=== PATIENT | female | born 2000 | race Caucasian/White ===

== ENCOUNTER 2023-01-05 01:10 | Emergency (ER) | payer OTHER ==
[2023-01-05 01:18] VITALS: RESP 18; TEMP 98.2
[2023-01-05] MEDS ORDERED: BENZOCAINE/MENTHOL LOZENG 1 EACH LOZENGE MUCOUS MEM STA (01:22)
[2023-01-05] MEDS ORDERED: KETOROLAC 15 MG/ML 1 ML VIAL IM STA (01:22)
[2023-01-05] MEDS ORDERED: ONDANSETRON ODT 4 MG TAB PO STA (02:09)
--- NOTE | 2023-01-05 02:43 | ED ---
ENT HPI - General Chief complaint: ENT Stated complaint: throat pain Time Seen by Provider: 01/05/23 01:22 Source: patient Mode of arrival: ambulatory Limitations: no limitations - History of Present Illness Initial comments: Patient is a 23-year-old female who presents to the emergency Department for sore throat. Patient reports mild sore throat since yesterday. He denies cough besides one episode of forceful cough on the way to the hospital during which patient saw a drop of blood on his arm after. He denies chest pain and shortness of breath. Denies fever, other upper respiratory symptoms. Denies history of PE and DVT. Denies leg pain and swelling. - Related Data Previous Rx's Medication Instructions Recorded Benzocaine/Menthol Lozeng [Cepacol 1 each MUCOUS MEM Q4HR PRN #30 01/05/23 lozenge] lozenge Ibuprofen [Motrin] 600 mg PO Q8HR PRN #30 tab 01/05/23 Ondansetron Odt [Zofran Odt] 4 mg PO Q8HR PRN #10 tab 01/05/23 Allergies Allergy/AdvReac Type Severity Reaction Status Date / Time No Known Allergies Allergy Verified 01/05/23 01:18 Review of Systems ROS Statement: Those systems with pertinent positive or pertinent negative responses have been documented in the HPI. ROS Other: All systems not noted in ROS Statement are negative. Past Medical History Past Medical History: No Reported History History of Any Multi-Drug Resistant Organisms: None Reported Past Surgical History: No Surgical Hx Reported Past Psychological History: Anxiety, Depression Smoking Status: Vaper Past Alcohol Use History: Rare Past Drug Use History: Marijuana, Opiates, Prescription Drug Abuse General Exam Limitations: no limitations General appearance: alert Head exam: Present: atraumatic, normocephalic, normal inspection Eye exam: Present: normal appearance, PERRL, EOMI. Absent: scleral icterus, conjunctival injection, periorbital swelling ENT exam: Present: normal oropharynx, TM's normal bilaterally Neck exam: Present: normal inspection. Absent: tenderness, meningismus, lymphadenopathy Respiratory exam: Present: normal lung sounds bilaterally. Absent: respiratory distress, wheezes, rales, rhonchi, stridor Cardiovascular Exam: Present: regular rate, normal rhythm, normal heart sounds. Absent: systolic murmur, diastolic murmur, rubs, gallop, clicks Neurological exam: Present: alert Psychiatric exam: Present: normal affect, normal mood Skin exam: Present: warm, dry, intact, normal color. Absent: rash Course Vital Signs 01/05/23 01/05/23 01:15 02:50 Temperature 98.2 F Pulse Rate 102 H 88 Respiratory 18 18 Rate Blood Pressure 145/92 136/78 O2 Sat by Pulse 98 100 Oximetry Medical Decision Making - Medical Decision Making Was pt. sent in by a medical professional or institution (MACK Quintanilla, GRAPHOTYPE OPERATOR, urgent care, hospital, or prison...) When possible be specific @ -No Did you speak to anyone other than the patient for history (EMS, parent, family, police, friend...)? What history was obtained from this source @ -No Did you review nursing and triage notes (agree or disagree)? Why? @ -I reviewed and agree with nursing and triage notes Were old charts reviewed (outside hosp., previous admission, EMS record, old EKG, old radiological studies, urgent care reports/EKG's, prison records)? Report findings @ -No old charts were reviewed Differential Diagnosis (chest pain, altered mental status, abdominal pain women, abdominal pain men, vaginal bleeding, weakness, fever, dyspnea, syncope, headache, dizziness, GI bleed, back pain, seizure, CVA, palpatations, mental health)? @ -URI, sinusitus,strep pharyngitis, viral pharyngitis, pneumonia, bronchitis, PE, sherrie wies tear-this list is not meant to be all-inclusive EKG interpreted by me (3pts min.). @ -As above X-rays interpreted by me (1pt min.). @ -None done CT interpreted by me (1pt min.). @ -None done U/S interpreted by me (1pt. min.). @ -None done What testing was considered but not performed or refused? (CT, X-rays, U/S, labs)? Why? @ -None What meds were considered but not given or refused? Why? @ -None Did you discuss the management of the patient with other professionals (professionals i.e. MACK Quintanilla, GRAPHOTYPE OPERATOR, lab, RT, psych nurse, social media marketer, water pollution control inspector, teacher, electronic warfare officer, nurse case management)? Give summary @ -No Was smoking cessation discussed for >3mins.? @ -No Was critical care preformed (if so, how long)? @ -No Were there social determinants of health that impacted care today? How? (Homelessness, low income, unemployed, alcoholism, drug addiction, transportation, low edu. Level, literacy, decrease access to med. care, residential, rehab)? @ -No Was there de-escalation of care discussed even if they declined (Discuss DNR or withdrawal of care, Hospice)? DNR status @ -No What co-morbidities impacted this encounter? (DM, HTN, Smoking, COPD, CAD, Cancer, CVA, ARF, Chemo, Hep., AIDS, mental health diagnosis, sleep apnea, morbid obesity)? @ -None Was patient admitted / discharged? Hospital course, mention meds given and route, prescriptions, significant lab abnormalities, going to OR and other pertinent info. @ Patient presenting for sore throat and reported episode of hemoptysis. Patient is well-appearing, vitals within acceptable limits. Physical exam unremarkable. Viral and strep testing is negative. Patient was observed closely during his visit. He did not have any further episodes of hemoptysis. Patient sleeping on repeat evaluation. Patient discharged in stable medical condition. Discussed return parameters Undiagnosed new problem with uncertain prognosis? @ -[No]Drg Therapy requiring intensive monitoring for toxicity (Heparin, Nitro, Insulin, Cardizem)? @ -[No]Wee any procedures done? @ -[No]Dignosis/symptom? @ -sore throat Acute, or Chronic, or Acute on Chronic? @ acute Uncomplicated (without systemic symptoms) or Complicated (systemic symptoms)? @ -uncomplicated Side effects of treatment? @ -No Exacerbation, Progression, or Severe Exacerbation? @ -No Poses a threat to life or bodily function? How? (Chest pain, [place], [place], pneumonia, PE, COPD, DKA, ARF, appy, cholecystitis, CVA, Diverticulitis, Homicidal, Suicidal, threat to staff... and all critical care pts) @ -No Dr. Vizcaino is my attending - Lab Data Lab Results 01/05/23 01/05/23 Range/Units 01:42 01:42 Influenza Type A (PCR) Not Detected (Not Detectd) Influenza Type B (PCR) Not Detected (Not Detectd) RSV (PCR) Not Detected (Not Detectd) SARS-CoV-2 (PCR) Not Detected (Not Detectd) Group A Strep (PCR) NOT DETECTED (Not Detectd) Disposition Clinical Impression: Sore throat Disposition: HOME SELF-CARE Condition: Good Instructions (If sedation given, give patient instructions): Pharyngitis (ED) Additional Instructions: Take medication as directed. Please follow-up with your primary care provider in 1-2 days. Return to the emergency department if you experience new, concerning, or worsening symptoms. Prescriptions: Benzocaine/Menthol Lozeng [Cepacol lozenge] 1 each MUCOUS MEM Q4HR PRN #30 lozenge PRN Reason: Pain Ibuprofen [Motrin] 600 mg PO Q8HR PRN #30 tab PRN Reason: Pain Ondansetron Odt [Zofran Odt] 4 mg PO Q8HR PRN #10 tab PRN Reason: Nausea Is patient prescribed a controlled substance at d/c from ED?: No Referrals: None,Stated [Primary Care Provider] - 1-2 days
[2023-01-05 02:51] VITALS: BP 136/78; PULSE 88
== END 2023-01-05 02:51 | disposition home or self-care (01) ==
LOC: EC 01:10
DX: J02.9 Acute pharyngitis, unspecified (principal); F17.290 Nicotine dependence, other tobacco product, uncomplicated; F12.90 Cannabis use, unspecified, uncomplicated; Z86.59 Personal history of other mental and behavioral disorders; Z20.822 Contact with and (suspected) exposure to COVID-19
CPT/HCPCS: 99283; 96372; 87651; 87636; J1885